=== PATIENT | male | born 1965 | race African-American/Black ===

== ENCOUNTER 2019-12-03 16:46 | Inpatient (IN) ==
[2019-12-03 18:24] LABS: Basophils % 0.6 % (0.0-0.8); Eosinophils # 0.3 10*3/uL (0.0-0.87); Eosinophils % 4.5 % (0.00-10.9); Hematocrit 40.1 VOL% (42.0-52.0); Hemoglobin 13.1 GM/DL (14.0-18.0); Immature Granulocytes % 0.2 %; Immature Granulocytes Absolute 0.01 #; Lymphocytes # 2.3 10*3/uL (1.4-4.0); Lymphocytes % 36.1 % (21.2-54.2); Mean Corpuscular HGB Conc 32.7 GM/DL (32-36); Mean Corpuscular Volume 95.9 FL (87-102); Mean Platelet Volume 9.8 FL (9.6-12.0); Monocytes % 9.7 % (1.7-12.7); Neutrophils % 48.9 % (38.7-73.9); Platelet Count 186 T/CUMM (130-400); Red Blood Count 4.18 MC/CUMM (3.8-5.5); Red Cell Distribution Width 12.3 % (9.3-17.3); White Blood Count 6.5 T/CUMM (4-12)
[2019-12-03 18:43] LABS: Calcium 9.3 MG/DL (8.5-10.1); Osmolality,Calculated 277.4 MOS/KG (273-304)
[2019-12-03] MEDS ORDERED: MAGNESIUM HYDROXIDE SUSP 30 ML UDCUP PO PRN (19:45)
[2019-12-03] MEDS: DEXTROSE 5% NACL 0.45% 1,000 ML IV SCH (20:34)
[2019-12-04] MEDS: DEXTROSE 5% NACL 0.45% 1,000 ML IV SCH ×2 (05:28→15:51)
[2019-12-04] MEDS ORDERED: ceFAZolin 2,000 MG in PREMIX 1 EACH IV ONE ×2 (06:00→09:30)
[2019-12-04] MEDS ORDERED: ceFAZolin 2,000 MG in PREMIX 1 EACH IV SCH (08:30)
[2019-12-04] MEDS ORDERED: BACITRACIN OINT 0.9 GM PACK TOP ONE (09:37)
[2019-12-04] MEDS: MESALAMINE 800 MG TABLET PO SCH ×3 (09:42→20:29)
[2019-12-04] MEDS: FUROSEMIDE 40 MG TABLET PO SCH (09:42)
[2019-12-04] MEDS: POTASSIUM CHLORIDE 10 MEQ TABLET PO SCH (09:42)
[2019-12-04] MEDS ORDERED: LIDOCAINE 1% 5 ML VIAL ONE (10:02)
[2019-12-04] MEDS ORDERED: ROPIVACAINE 0.5% 30 ML VIAL ONE (10:02)
[2019-12-04] MEDS ORDERED: DEXAMETHASONE 4 MG/1 ML VIAL ONE (10:02)
[2019-12-04] MEDS ORDERED: ceFAZolin 1,000 MG VIAL ONE (11:16)
[2019-12-04] MEDS ORDERED: diphenhydrAMINE CAP 25 MG CAPSULE PO PRN (11:19)
[2019-12-04] MEDS ORDERED: ONDANSETRON 4 MG/2 ML VIAL IV PRN (11:19)
[2019-12-04] MEDS ORDERED: MORPHINE 4 MG/1 ML VIAL IV PRN ×2 (11:19)
[2019-12-04] MEDS ORDERED: propofoL 200 MG/20 ML VIAL IV ONE (12:12)
[2019-12-04] MEDS ORDERED: SEVOFLURANE 1 UNIT/15 MINUTE INH ONE (12:12)
[2019-12-04] MEDS ORDERED: MIDAZOLAM 2 MG/2 ML VIAL ONE (12:13)
[2019-12-04] MEDS ORDERED: GLYCOPYRROLATE 0.4 MG/2 ML VIAL ONE (12:13)
[2019-12-04] MEDS ORDERED: fentaNYL 100 MCG/2 ML VIAL ONE (12:13)
[2019-12-04] MEDS ORDERED: ONDANSETRON 4 MG/2 ML VIAL ONE (12:13)
[2019-12-04] MEDS ORDERED: ROCURONIUM 100 MG/10 ML VIAL IV ONE (12:13)
[2019-12-04] MEDS ORDERED: NEOSTIGMINE 10 MG/10 ML VIAL ONE (12:13)
[2019-12-04] MEDS ORDERED: PHENYLEPHRINE 10 MG/1 ML VIAL IV ONE (12:13)
[2019-12-04] MEDS ORDERED: LIDOCAINE 2% 5 ML VIAL ONE (12:14)
[2019-12-04] MEDS: KETOROLAC 30 MG/1 ML VIAL IV SCH ×2 (13:24→20:30)
[2019-12-04] MEDS: ceFAZolin 2,000 MG in PREMIX 1 EACH IV SCH (18:15)
[2019-12-04] MEDS: SERTRALINE 100 MG TABLET PO SCH (20:29)
[2019-12-04] MEDS: VERAPAMIL SR 240 MG TABLET PO SCH (20:29)
[2019-12-04] MEDS: DOCUSATE SODIUM 100 MG CAPSULE PO SCH (20:29)
[2019-12-05] MEDS: KETOROLAC 30 MG/1 ML VIAL IV SCH ×2 (01:21→09:33)
[2019-12-05] MEDS ORDERED: ceFAZolin 2,000 MG in PREMIX 1 EACH IV SCH (03:30)
[2019-12-05 05:07] LABS: Basophils % 0.3 % (0.0-0.8); Eosinophils % 0.4 % (0.00-10.9); Hematocrit 35.4 VOL% (42.0-52.0); Immature Granulocytes % 0.3 %; Immature Granulocytes Absolute 0.03 #; Lymphocytes # 1.8 10*3/uL (1.4-4.0); Lymphocytes % 18.2 % (21.2-54.2); Mean Corpuscular HGB Conc 33.9 GM/DL (32-36); Mean Corpuscular Volume 91.5 FL (87-102); Mean Platelet Volume 10.1 FL (9.6-12.0); Monocytes % 9.4 % (1.7-12.7); Neutrophils % 71.4 % (38.7-73.9); Platelet Count 186 T/CUMM (130-400); Red Blood Count 3.87 MC/CUMM (3.8-5.5); Red Cell Distribution Width 11.9 % (9.3-17.3)
[2019-12-05] MEDS: FONDAPARINUX 2.5 MG/0.5 ML SYRINGE SUBCUT SCH (06:23)
[2019-12-05] MEDS: ceFAZolin 2,000 MG in PREMIX 1 EACH IV SCH (07:10)
[2019-12-05] MEDS: DOCUSATE SODIUM 100 MG CAPSULE PO SCH ×2 (09:33→21:38)
[2019-12-05] MEDS: MESALAMINE 800 MG TABLET PO SCH ×3 (09:33→21:38)
[2019-12-05] MEDS: POTASSIUM CHLORIDE 10 MEQ TABLET PO SCH (09:33)
[2019-12-05] MEDS: FUROSEMIDE 40 MG TABLET PO SCH (09:34)
[2019-12-05] MEDS: VERAPAMIL SR 240 MG TABLET PO SCH (21:38)
[2019-12-05] MEDS: SERTRALINE 100 MG TABLET PO SCH (21:38)
[2019-12-06] MEDS: FONDAPARINUX 2.5 MG/0.5 ML SYRINGE SUBCUT SCH (04:37)
[2019-12-06] MEDS: FUROSEMIDE 40 MG TABLET PO SCH (09:49)
[2019-12-06] MEDS: MESALAMINE 800 MG TABLET PO SCH ×3 (09:49→20:47)
[2019-12-06] MEDS: DOCUSATE SODIUM 100 MG CAPSULE PO SCH ×2 (09:50→20:47)
[2019-12-06] MEDS: POTASSIUM CHLORIDE 10 MEQ TABLET PO SCH (09:50)
[2019-12-06] MEDS: SERTRALINE 100 MG TABLET PO SCH (20:47)
[2019-12-06] MEDS: VERAPAMIL SR 240 MG TABLET PO SCH (20:47)
[2019-12-07] MEDS: FONDAPARINUX 2.5 MG/0.5 ML SYRINGE SUBCUT SCH (05:06)
[2019-12-07 07:43] VITALS: BP 129/76
[2019-12-07] MEDS: FUROSEMIDE 40 MG TABLET PO SCH (09:09)
[2019-12-07] MEDS: MESALAMINE 800 MG TABLET PO SCH (09:09)
[2019-12-07] MEDS: POTASSIUM CHLORIDE 10 MEQ TABLET PO SCH (09:09)
[2019-12-07] MEDS: DOCUSATE SODIUM 100 MG CAPSULE PO SCH (09:09)
== END 2019-12-07 10:11 | DRG 482 ==
LOC: N.ED 16:46 → N.EDINP 17:55 → N.3E 18:23 → N.3W 19:15
PROVIDERS: ADMIT Orthopaedic Surgery; ATTEND Orthopaedic Surgery

== ENCOUNTER 2021-11-21 20:52 | Observation (INO) ==
[2021-11-21] MEDS ORDERED: hydrALAZINE 20 MG/1 ML VIAL IV STA (21:44)
[2021-11-21 22:19] LABS: Basophils % 0.6 % (0.0-0.8); Eosinophils % 0.4 % (0.00-10.9); Immature Granulocytes % 0.1 %; Immature Granulocytes Absolute 0.01 #; Lymphocytes # 1.8 10*3/uL (1.4-4.0); Lymphocytes % 26.4 % (21.2-54.2); Mean Corpuscular HGB Conc 32.7 GM/DL (32-36); Mean Corpuscular Volume 95.3 FL (87-102); Mean Platelet Volume 10.2 FL (9.6-12.0); Monocytes % 12.7 % (1.7-12.7); Neutrophils % 59.8 % (38.7-73.9); Platelet Count 223 T/CUMM (130-400); Red Blood Count 5.14 MC/CUMM (3.8-5.5); Red Cell Distribution Width 14.7 % (9.3-17.3); White Blood Count 6.7 T/CUMM (4-12)
[2021-11-21] MEDS ORDERED: FUROSEMIDE 40 MG/4 ML VIAL IV STA (22:48)
[2021-11-21 23:29] LABS: Albumin 2.9 G/DL (3.4-5.0); Bilirubin,Total 0.8 MG/DL (0.20-1.00); Calcium 9.1 MG/DL (8.5-10.1); Osmolality,Calculated 285.1 MOS/KG (273-304); Potassium 3.9 MMOL/L (3.5-5.1); Total Protein 6.8 G/DL (6.4-8.2)
[2021-11-22] MEDS ORDERED: ONDANSETRON 4 MG/2 ML VIAL IV PRN (00:18)
[2021-11-22] MEDS ORDERED: hydrALAZINE 20 MG/1 ML VIAL IV PRN ×2 (00:18→03:00)
[2021-11-22] MEDS ORDERED: MAGNESIUM SULF RIDER 4 GM/100 ML PREMIX IV PRN (00:26)
[2021-11-22] MEDS ORDERED: MAGNESIUM SULF RIDER 2 GM/50 ML PREMIX IV PRN (00:26)
[2021-11-22] MEDS ORDERED: ENOXAPARIN 80 MG/0.8 ML SYRINGE SUBCUT SCH (02:00)
[2021-11-22] MEDS ORDERED: INFLUENZA VIRUS VACCINE 0.5 ML SYRINGE IM ONE (04:07)
[2021-11-22 07:48] LABS: Basophils % 0.4 % (0.0-0.8); Eosinophils % 0.2 % (0.00-10.9); Hematocrit 44.9 VOL% (42.0-52.0); Hemoglobin 15.1 GM/DL (14.0-18.0); Immature Granulocytes % 0.2 %; Immature Granulocytes Absolute 0.02 #; Lymphocytes # 1.7 10*3/uL (1.4-4.0); Lymphocytes % 21.3 % (21.2-54.2); Mean Corpuscular HGB Conc 33.6 GM/DL (32-36); Mean Platelet Volume 10.3 FL (9.6-12.0); Monocytes % 10.8 % (1.7-12.7); Neutrophils % 67.1 % (38.7-73.9); Platelet Count 188 T/CUMM (130-400); Red Blood Count 4.88 MC/CUMM (3.8-5.5); Red Cell Distribution Width 14.6 % (9.3-17.3); White Blood Count 8.2 T/CUMM (4-12)
[2021-11-22 08:14] LABS: Albumin 2.6 G/DL (3.4-5.0); Bilirubin,Total 1.2 MG/DL (0.20-1.00); Calcium 8.4 MG/DL (8.5-10.1); Potassium 3.2 MMOL/L (3.5-5.1); Total Protein 6.5 G/DL (6.4-8.2)
[2021-11-22] MEDS: PANTOPRAZOLE 40 MG TABLET PO SCH (09:04)
[2021-11-22] MEDS: ASPIRIN CHEW 81 MG TABLET PO SCH (09:04)
[2021-11-22] MEDS: FUROSEMIDE 40 MG/4 ML VIAL IV SCH ×2 (09:04→16:35)
[2021-11-22] MEDS ORDERED: POTASSIUM CHLORIDE 20 MEQ TABLET PO ONE (12:12)
[2021-11-22] MEDS: carvediloL 6.25 MG TABLET PO SCH ×2 (12:19→21:32)
[2021-11-22] MEDS ORDERED: ENOXAPARIN 40 MG/0.4 ML SYRINGE SUBCUT SCH (14:00)
[2021-11-22] MEDS: SPIRONOLACTONE 25 MG TABLET PO SCH (14:50)
[2021-11-22] MEDS ORDERED: VERAPAMIL SR 240 MG TABLET PO SCH (21:00)
[2021-11-22] MEDS ORDERED: SERTRALINE 100 MG TABLET PO SCH (21:00)
[2021-11-22] MEDS: SACUBITRIL/VALSARTAN 49-51 MG TABLET PO SCH (21:32)
[2021-11-23 05:36] LABS: Basophils % 0.6 % (0.0-0.8); Eosinophils # 0.2 10*3/uL (0.0-0.87); Eosinophils % 2.7 % (0.00-10.9); Hematocrit 46.9 VOL% (42.0-52.0); Hemoglobin 15.6 GM/DL (14.0-18.0); Immature Granulocytes % 0.3 %; Immature Granulocytes Absolute 0.02 #; Lymphocytes # 2.2 10*3/uL (1.4-4.0); Lymphocytes % 33.2 % (21.2-54.2); Mean Corpuscular HGB Conc 33.3 GM/DL (32-36); Mean Corpuscular Volume 91.4 FL (87-102); Mean Platelet Volume 9.5 FL (9.6-12.0); Monocytes % 8.9 % (1.7-12.7); Neutrophils % 54.3 % (38.7-73.9); Platelet Count 217 T/CUMM (130-400); Red Blood Count 5.13 MC/CUMM (3.8-5.5); Red Cell Distribution Width 14.5 % (9.3-17.3); White Blood Count 6.6 T/CUMM (4-12)
[2021-11-23 05:57] LABS: Calcium 8.2 MG/DL (8.5-10.1); Osmolality,Calculated 278.7 MOS/KG (273-304); Potassium 3.9 MMOL/L (3.5-5.1)
[2021-11-23 06:03] LABS: Eosinophils 3 % (0-10); Hypochromia 1+; Lymphocytes 33 % (20-55); Microcytosis Slight; Segmented Neutrophils 60 % (50-85); Total Cells Counted 100
[2021-11-23 06:04] LABS: Platelet Estimate Normal; Target Cells Slight
[2021-11-23 06:11] LABS: Risk Ratio 3.54; VLDL Cholesterol 11.4 MG/DL
[2021-11-23] MEDS ORDERED: carvediloL 6.25 MG TABLET PO SCH (09:00)
[2021-11-23] MEDS ORDERED: carvediloL 3.125 MG TABLET PO SCH (09:00)
[2021-11-23] MEDS: SACUBITRIL/VALSARTAN 49-51 MG TABLET PO SCH (09:42)
[2021-11-23] MEDS: FUROSEMIDE 40 MG/4 ML VIAL IV SCH (09:42)
[2021-11-23] MEDS: SPIRONOLACTONE 25 MG TABLET PO SCH (09:42)
[2021-11-23] MEDS: PANTOPRAZOLE 40 MG TABLET PO SCH (09:43)
[2021-11-23] MEDS: ASPIRIN CHEW 81 MG TABLET PO SCH (09:43)
[2021-11-23 12:00] VITALS: BP 110/86
== END 2021-11-23 14:31 ==
LOC: EDBD → EDUNIT# → N.ED 20:52 → N.EDINP 20:52 → SUATTDRO 11-22 00:18 → N.3W 11-22 02:33
PROVIDERS: ADMIT Hospitalist; ATTEND Internal Medicine